=== PATIENT | male | born 1965 | race African-American/Black ===

== ENCOUNTER 2019-08-10 22:13 | Inpatient (IN) | payer OTHER, MEDICAID ==
[~2019-08-10] VITALS: Ht 167.6 cm; Wt 62.4 kg
[2019-08-10] MEDS ORDERED: SODIUM CHLORIDE 0.9% 1,000 ML IV ONE (23:11)
[2019-08-10 23:34] LABS: CHLORIDE 108 mEq/L (98-107)
[2019-08-10 23:39] LABS: BASOPHILS % 1.1 % (0.0-2.0); EOSINOPHILS % 4.9 % (0.0-5.0); HEMATOCRIT. 42.6 % (42.0-52.0); HEMOGLOBIN. 14.2 g/dL (14.0-18.0); LYMPHOCYTES % 25.1 % (20.0-50.0); MEAN CORPUSCULAR HEMOGLOBIN 30.3 pg (28.0-32.0); MEAN CORPUSCULAR VOLUME 90.7 fL (80.0-94.0); MEAN PLATELET VOLUME 7.4 fl (7.4-10.4); MONOCYTES % 8.5 % (2.0-8.0); NEUTROPHILS % 60.4 % (40.0-76.0); PLATELET 308 x1000/uL (130-400); RED CELL DISTRIBUTION WIDTH 13.9 % (11.6-14.6)
[2019-08-11] MEDS ORDERED: SODIUM CHLORIDE 0.9% 1,000 ML IV ONE (01:31)
[2019-08-11] MEDS ORDERED: HYDROCODONE/ACETAMINOPHEN 5/325MG TABLET PO PRN (06:30)
[2019-08-11] MEDS ORDERED: CLONIDINE 0.1MG TABLET PO PRN (06:30)
[2019-08-11] MEDS ORDERED: ACETAMINOPHEN 325MG TABLET PO PRN (06:30)
[2019-08-11] MEDS ORDERED: GUAIFENESIN 200MG/10ML SUGAR FREE UDC PO PRN (06:30)
[2019-08-11] MEDS ORDERED: MAGNESIUM/ALUMINUM HYDROXIDE/SIMETHICONE 30ML UDC PO PRN (06:30)
[2019-08-11] MEDS ORDERED: DOCUSATE SODIUM 100MG CAPSULE PO PRN (06:30)
[2019-08-11] MEDS ORDERED: ONDANSETRON HCL 4MG/2ML INJ IV PRN (06:30)
[2019-08-11 08:30] VITALS: BP 119/61
[2019-08-11] MEDS ORDERED: SODIUM CHLORIDE 0.9% 1,000 ML IV SCH (09:00)
[2019-08-11 10:18] VITALS: BP 119/61
[2019-08-11] MEDS ORDERED: DEXTROSE 50% WATER 50ML SYRINGE IV PRN (10:45)
[2019-08-11] MEDS ORDERED: MIDO2.5T MT (11:59)
[2019-08-11 12:00] VITALS: BP 107/65
[2019-08-11] MEDS ORDERED: KETOROLAC 15MG/ML VIAL IV SCH (12:15)
[2019-08-11] MEDS ORDERED: BLOOD SUGAR DIAGNOSTIC STRIP TEST SCH (12:20)
[2019-08-11] MEDS ORDERED: INSULIN LISPRO 100 UNITS/ML SUBCUT SCH (12:50)
[2019-08-11] MEDS ORDERED: MIDODRINE HCL 2.5MG TABLET PO SCH (13:00)
[2019-08-11 14:27] VITALS: BP 107/65
== END 2019-08-11 14:57 | disposition home or self-care (01) | DRG 48 ==
LOC: ER 22:13 → EDBEDREQSVC 08-11 04:42 → EDBEDREQ 08-11 04:42 → EDBEDREQDT 08-11 04:42 → EDBEDREQTM 08-11 04:42 → 6WST 08-11 04:47 → EDBEDREQTM 08-11 04:51 → EDBEDREQ 08-11 04:51 → EDBEDREQSVC 08-11 04:51 → ENRESERV 08-11 07:35
PROVIDERS: ADMIT Hospitalist; ATTEND Hospitalist
DX: G90.8 Other disorders of autonomic nervous system (principal); G93.40 Encephalopathy, unspecified; E44.0 Moderate protein-calorie malnutrition; I95.9 Hypotension, unspecified; I25.10 Atherosclerotic heart disease of native coronary artery without angina pectoris; F17.200 Nicotine dependence, unspecified, uncomplicated; I25.2 Old myocardial infarction; Z88.8 Allergy status to other drugs, medicaments and biological substances
CPT/HCPCS: 36415; 71045; 80053; 82962; 84484; 85025; 85379; 93005; 93306; 93970; 96374; 99285; J1885; J7030